=== PATIENT | female | born 1995 | race Caucasian/White ===

== ENCOUNTER 2019-03-15 19:32 | Inpatient (IN) | payer MEDICAID, SELFPAY ==
[2019-03-15 20:06] LABS: HCT 28.6 % (36.0-46.0); HGB 9.2 g/dL (12.0-15.5); Mean Corp. HGB Concentration 32.2 g/dL (32.0-36.0); Mean Corpuscular Hemoglobin 28.8 pg (27.0-33.0); Mean Corpuscular Volume 89.7 fL (80-95); Mean Platelet Volume 11.4 fL (8.0-11.0); Platelet Count 386 x1000/uL (130-400); RBC 3.19 m/cumm (4.00-5.20); RBC Distribution Width 15.3 % (11.7-14.6); White Blood Cell Count 13.37 k/cumm (4.4-10.8)
[2019-03-16] MEDS: Normal Saline Flush 10 ML SYR IVP (02:59)
[2019-03-16] MEDS: Lactated Ringers 1,000 ML 125 ML IV ×2 (03:00→09:00)
[2019-03-16] MEDS: FentaNYL/ROPIvacaine 2 mcg/ml and 0.1% 200 ML CADD Cassette EP (09:34)
[2019-03-16] MEDS: Acetaminophen 325 MG TAB 650 MG PO ×2 (13:44→19:32)
[2019-03-16] MEDS: Ibuprofen 600 MG TAB PO ×2 (13:44→20:25)
[2019-03-17 07:16] LABS: HGB 7.8 g/dL (12.0-15.5); Mean Corp. HGB Concentration 31.2 g/dL (32.0-36.0); Mean Corpuscular Hemoglobin 28.4 pg (27.0-33.0); Mean Corpuscular Volume 90.9 fL (80-95); Mean Platelet Volume 11.8 fL (8.0-11.0); Platelet Count 340 x1000/uL (130-400); RBC 2.75 m/cumm (4.00-5.20); RBC Distribution Width 15.2 % (11.7-14.6); White Blood Cell Count 14.82 k/cumm (4.4-10.8)
== END 2019-03-17 17:00 | disposition home or self-care (01) | DRG 807 ==
PROVIDERS: Admitting Provider Family Medicine; PCP Family Medicine; Visit Provider Family Medicine
DX: O69.81X0 Labor and delivery complicated by cord around neck, without compression, not applicable or unspecified (principal); Z37.0 Single live birth; O69.89X0 Labor and delivery complicated by other cord complications, not applicable or unspecified; O77.0 Labor and delivery complicated by meconium in amniotic fluid; Z3A.38 38 weeks gestation of pregnancy; O99.344 Other mental disorders complicating childbirth; F41.8 Other specified anxiety disorders; F90.9 Attention-deficit hyperactivity disorder, unspecified type; Z67.41 Type O blood, Rh negative
CPT/HCPCS: 36415; 85027; 86850; 86900; 86901; 86870; J3490